=== PATIENT | female | born 1975 | race Caucasian/White ===

== ENCOUNTER 2020-05-24 10:01 | Emergency (ER) | payer OTHER ==
[2020-05-24] MEDS ORDERED: IBUPROFEN 600 MG TABLET (FP) PO ONE ×2 (10:11→10:15)
[2020-05-24 10:14] VITALS: BP 144/92; PULSE 91; TEMP 98.5; BMI 34.7
== END 2020-05-24 12:49 | disposition home or self-care (01) ==
LOC: FER 10:01
DX: S89.91XA Unspecified injury of right lower leg, initial encounter (principal)
CPT/HCPCS: 73564-TC-RT-FY; 73700-TC-RT; 99283-25